=== PATIENT | female | born 1995 | race Caucasian/White ===

== ENCOUNTER 2022-06-01 02:58 | Emergency (ER) | payer OTHER, MEDICAID, SELFPAY ==
[2022-06-01 03:07] VITALS: BP 135/89; PULSE 71; RESP 18; TEMP 36.6; O2SAT 99; BMI 25.0
[2022-06-01 03:10] VITALS: BP 131/87; PULSE 97; RESP 16; O2SAT 97
--- NOTE | 2022-06-01 03:40 | XRR_ITS ---
PROCEDURE INFORMATION: Exam: XR Chest Exam date and time: 06/01/2022 4:12 AM Age: 27 years old Clinical indication: Shortness of breath; Additional info: Allergic reaction, SOB TECHNIQUE: Imaging protocol: Radiologic exam of the chest. Views: 1 view. COMPARISON: No relevant prior studies available. FINDINGS: Lungs: The lung parenchyma is clear. Pleural spaces: No pneumothorax. No pleural effusion. Heart/Mediastinum: The cardiomediastinal silhouette is within normal limits. Bones/joints: Unremarkable. XR/XR chest 1V portable [id number] IMPRESSION: No acute cardiopulmonary abnormality.
--- NOTE | 2022-06-01 03:57 | ED_ITS ---
HPI - Allergic Reaction General: Chief complaint: Allergic Reaction Stated complaint: SOB Headaches Time Seen by Provider: 06/01/22 03:22 History of Present Illness: HPI narrative: 27-year-old female, healthy, presents after an exposure at her work to what she believes is a chemical that she may be allergic to. This happened yesterday afternoon. 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 She has had reactions to this before, but not this severe or prolonged. She has multiple symptoms including headache, shortness of breath, a feeling of tightness in her throat, and tingling in her tongue she has had nausea as well. She has not taken anything for the symptoms. She notes that in the past, when taking Benadryl, it makes her feel like I am going to . She is quite anxious on exam, and tearful when the blood pressure cuff takes her blood pressure. She lists multiple medication allergies and intolerances. MD complaint: allergic reaction and other Onset (ago): hour(s) Exposure: cleaning product exposure Associated symptoms: Reports difficulty breathing, dysphagia, nausea and tongue swelling (possibly); Deny abdominal pain, facial swelling, hoarseness, itching, lip swelling, rash or vomiting Treatment prior to arrival: none Previous Allergic Reaction History: other Review of Systems Const: Denies: fever(s) Eyes: Reports: change in vision and blurry vision; Denies: eye discomfort ENMT: Reports: throat pain; Denies: hoarseness, swelling of lips/tongue or oral sores Card: Denies: chest pain Resp: Reports: dyspnea GI: Reports: nausea and dysphagia; Denies: abdominal pain or vomiting Skin/Breast: Denies: rash Neuro: Reports: headache(s) Psych: Reports: anxiety All/Imm: Reports: tongue swelling (possibly); Denies: facial swelling Physical Exam Const: GENERAL APPEARANCE: cooperative, well kempt and anxious; not ill appearing and not frail appearing ORIENTATION/CONSCIOUSNESS: Yes awake HENMT: COMMON NORMALS: normocephalic, atraumatic and Normal external nose present HEAD & SCALP: normocephalic and atraumatic; no Acrocyanosis present FACE & SINUS: normal facial exam and face symmetric; no Acrocyanosis present NOSE: Normal external nose present and Normal nares present MOUTH: Normal oral and palatal mucosa present, lip normal and tongue normal THROAT: posterior oropharynx normal Eye: COMMON NORMALS: Equal, round and reactive pupils present and EOMs intact bilaterally PUPIL: Yes Equal, round and reactive pupils present Neck/C-Spine: GENERAL: Yes trachea midline Chest: CHEST: Yes Symmetrical chest wall rise Resp: COMMON NORMALS: normal respiratory effort, No use of accessory muscles and clear to auscultation bilaterally AUSCULTATION: clear to auscultation bilaterally Cardio: COMMON NORMALS: regular rate and regular rhythm RATE: regular rate RHYTHM: regular rhythm GI: COMMON NORMALS: Normal to inspection, nondistended, normoactive bowel sounds present Extremity: COMMON NORMALS: no pedal edema Neuro: JAIME COMA SCALE: document GCS findings Jaime coma scale eye opening: Spontaneous Ferguson coma scale verbal response: Orientated Jaime coma scale motor response: Obey commands Ferguson coma scale total score: 15 Psych: APPEARANCE: Yes well kempt Skin: COMMON NORMALS: no rashes or lesions noted GENERAL SKIN EXAM: no rashes or lesions noted Course Vital Signs: Vital signs: Vital Signs Temperature 97.8 F 06/01/22 03:07 Pulse Rate 90 06/01/22 05:19 Respiratory Rate 16 06/01/22 05:19 Blood Pressure 101/59 06/01/22 05:19 Pulse Oximetry 95 06/01/22 05:19 MDM - Allergic Reaction Medical Decision Making This patient has no signs of respiratory distress whatsoever. Her tongue is of normal size. No lip swelling. She talks with pressured speech without becoming short of breath. Lab Data Radiology Impressions Chest X-Ray 06/01/22 03:40 IMPRESSION: No acute cardiopulmonary abnormality. Discharge Plan Discharge Patient Disposition: Home Clinical Impression: Allergic reaction Condition: Stable Prescriptions: New Zyrtec 10 mg capsule 10 mg PO DAILY Qty: 7 0RF Medrol (Travis) 4 mg tablets,dose pack See Rx Instructions PO .COMPLEX Qty: 21 0RF Rx Instructions: orally per package directions Discharge Orders: Discharge ED (Routine); Ordered 06/01/22 Ordered By: Amado Garcia Patient Instructions: Allergic Reaction Activity Restrictions/Additional Instructions: Medication as directed. Return for worsening symptoms such as shortness of breath, tongue swelling, trouble swallowing, any other concerns. See your doctor in follow-up Coding Level of Care Code ED Box Hinge And Lock Attacher for Chg Fwd Exam Comprehensive
[2022-06-01] MEDS: predniSONE 20 mg Tablet 40 MG PO (04:07)
[2022-06-01] MEDS: hyDROXYzine 25 mg Capsule PO (04:27)
[2022-06-01 05:10] VITALS: BP 101/59; PULSE 90; RESP 16; O2SAT 95
[2022-06-01 05:19] VITALS: BP 101/59; PULSE 90; RESP 16; O2SAT 95
== END 2022-06-01 05:24 | disposition home or self-care (01) ==
PROVIDERS: Emergency Provider Emergency Medicine
DX: T78.40XA Allergy, unspecified, initial encounter (principal)
CPT/HCPCS: 71045; 99283; J7512

== ENCOUNTER 2022-08-30 21:32 | Emergency (ER) | payer MEDICAID, SELFPAY ==
[2022-08-30 21:38] VITALS: BP 132/86; PULSE 77; RESP 16; TEMP 36.6; O2SAT 97
[2022-08-30] MEDS: CLONazepam 0.5 mg Tablet 0.25 MG PO (23:03)
--- NOTE | 2022-08-30 23:17 | W.ED.GENADLT ---
HPI - General Adult General: Chief complaint: General Medical Stated complaint: Facial Spasims Time Seen by Provider: 08/30/22 22:19 History of Present Illness: Patient is in today for muscle spasming. She reports that she had an EMDR treatment yesterday through her counselor. She reports that she feels like she may be stuck in a memory. She states that tonight she has been having rapid eye movement and muscle tightening from her face to her toes. She has had these similar movements in the past, after EMDR, but this has lasted longer Associated symptoms: Deny chest pain, dyspnea, nausea, palpitations or vomiting Review of Systems Const: Denies: fever(s), chills or body aches Card: Denies: chest pain or palpitations Resp: Denies: dyspnea GI: Denies: abdominal pain, nausea or vomiting : Denies: flank pain, difficulty voiding or dysuria Musc: Reports: other (Muscle spasms and twitching) Physical Exam Const: COMMON NORMALS: no acute distress, patient oriented x3 and alert Neck/C-Spine: COMMON NORMALS: no JVD Resp: COMMON NORMALS: normal respiratory effort, No use of accessory muscles and clear to auscultation bilaterally AUSCULTATION: clear to auscultation bilaterally Cardio: COMMON NORMALS: no JVD, regular rate, regular rhythm, S1 normal heart sound present, S2 normal heart sound present and No murmurs present (Cardio) RATE: regular rate RHYTHM: regular rhythm HEART SOUNDS: S1 normal heart sound present and S2 normal heart sound present Neuro: COMMON NORMALS: patient oriented x3 SENSORIUM/ORIENTATION: Yes alert OTHER: The patient is well-appearing. She makes occasional odd faces and states that she has spasming in her back. When she closes her eyes her eyes flutter. None of these movements seem to be rhythmic or a tic. Cranial nerves II through XII are grossly intact. Patient appears to be in no acute distress. She is on the phone and has a friend at bedside with her Course Vital Signs: Vital signs: Vital Signs Temperature 97.8 F 08/30/22 21:38 Pulse Rate 77 08/30/22 21:38 Respiratory Rate 16 08/30/22 21:38 Blood Pressure 132/86 08/30/22 21:38 Pulse Oximetry 97 08/30/22 21:38 Oxygen Delivery Me thod 08/30/22 21:38 MDM - General Adult Medical Decision Making A histrionic 27-year-old female presents today stating that she is having a reaction from her EMDR treatment she had yesterday in counseling. She reports that she frequently has muscle twitching and spasming after such treatment. She feels like she is stuck in a memory. She also brings in genetic testing she has had done to tell which medication she can and cannot take. Labs are ordered to rule out any sort of electrolyte imbalance issue that could be leading to muscle spasm and contraction. Small dose of p.o. Klonopin given to help patient to relax. The muscle movements and spasming do not appear to be rhythmic. They do not appear to be seizure related. Reevaluation after Klonopin shows that patient reports improvement of muscle spasming contraction. She reports that she is ready to go home and try and go to bed. Labs are unremarkable. Patient is discharged home with her friend to drive. Advised her to follow-up next week with therapist and primary care provider. Return to ER as needed for new or worsening symptoms. Patient voiced understanding and agreement with plan of care. All questions answered to satisfaction Lab Data : 08/30/22 23:10 08/30/22 23:10 Laboratory Results WBC 8.7 10^3/uL (4.0-10.0) 08/30/22 23:10 RBC 4.44 10^6/uL (4.1-5.3) 08/30/22 23:10 Hgb 13.4 g/dL (11.5-15.3) 08/30/22 23:10 Hct 39.3 % (37.0-47.0) 08/30/22 23:10 MCV 88.5 fl (81-99) 08/30/22 23:10 MCH 30.2 pg (28.0-34.0) 08/30/22 23:10 MCHC 34.1 g/dL (30.0-36.0) 08/30/22 23:10 RDW 11.9 % (12.1-15.1) L 08/30/22 23:10 Plt Count 246 10^3/cmm (130-400) 08/30/22 23:10 MPV 10.0 fL (7.4-10.4) 08/30/22 23:10 Neut % (Auto) 64.5 % 08/30/22 23:10 Lymph % (Auto) 26.0 % 08/30/22 23:10 [place] % (Auto) 7.6 % 08/30/22 23:10 Eos % (Auto) 1.2 % 08/30/22 23:10 Baso % (Auto) 0.5 % 08/30/22 23:10 Neut # (Auto) 5.61 10^3/uL (1.8-7.7) 08/30/22 23:10 Lymph # (Auto) 2.3 10^3/uL (0.8-4.8) 08/30/22 23:10 [place] # (Auto) 0.7 10^3/uL (0.2-0.9) 08/30/22 23:10 Eos # (Auto) 0.1 10^3/uL (0.0-0.8) 08/30/22 23:10 Baso # (Auto) 0.0 10^3/uL (0.0-0.1) 08/30/22 23:10 Nucleated RBC % (auto) 0 % 08/30/22 23:10 Nucleated RBCs # 0.0 /100WBC 08/30/22 23:10 Sodium 139 mmol/L (136-145) 08/30/22 23:10 Potassium 3.9 mmol/L (3.5-5.1) 08/30/22 23:10 Chloride 104 mmol/L (98-107) 08/30/22 23:10 Carbon Dioxide 23 mmol/L (22-29) 08/30/22 23:10 Anion Gap 15.9 (5-19) 08/30/22 23:10 BUN 10 mg/dL (6-20) 08/30/22 23:10 Creatinine 0.8 mg/dL (0.5-0.9) 08/30/22 23:10 GFR Calculation 85.4 mL/min (90-130) L 08/30/22 23:10 Glucose 95 mg/dL (65-115) 08/30/22 23:10 Calculated Osmolality 287 mOsm/kg (285-295) 08/30/22 23:10 Calcium 9.5 mg/dL (8.5-10.5) 08/30/22 23:10 Total Bilirubin 0.7 mg/dL (0.15-1.2) 08/30/22 23:10 AST 12 U/L (0-32) 08/30/22 23:10 ALT 10 U/L (0-33) 08/30/22 23:10 Alkaline Phosphatase 54 U/L (35-105) 08/30/22 23:10 Total Protein 7.5 g/dL (6.6-8.7) 08/30/22 23:10 Albumin 4.7 g/dL (3.5-5.2) 08/30/22 23:10 Globulin 2.8 g/dL (1.3-4.6) 08/30/22 23:10 Urine HCG, Qual Negative (Negative) 08/30/22 23:40 Discharge Plan Discharge Patient Disposition: Home Clinical Impression: Anxiety Condition: Stable Prescriptions: No Action Zyrtec 10 mg capsule 10 mg PO DAILY Qty: 7 0RF Medrol (Travis) 4 mg tablets,dose pack See Rx Instructions PO .COMPLEX Qty: 21 0RF Rx Instructions: orally per package directions Discharge Orders: Discharge ED (Routine); Ordered 08/31/22 Ordered By: Addis Murphy Referrals: Niki Dash M.D [Primary Care Provider] - Discharge Diet: Usual diet Discharge Activity: Resume usual activity Activity Restrictions/Additional Instructions: You received clonazepam tonight. No driving tonight. Rest, sure that you are staying hydrated. Follow-up with therapist and primary care provider next week for reevaluation. Return to the ER as needed for new or worsening symptoms Coding Level of Care Code ED Speech And Hearing Director for Angela Fwcasandra Exam Expanded Problem Focused
[2022-08-30 23:20] LABS: Basophils % 0.5 %; Eosinophils # 0.1 10^3/uL (0.0-0.8); Eosinophils % 1.2 %; Hematocrit 39.3 % (37.0-47.0); Hemoglobin 13.4 g/dL (11.5-15.3); Lymphocytes # 2.3 10^3/uL (0.8-4.8); Mean Corpuscular HGB Conc 34.1 g/dL (30.0-36.0); Mean Corpuscular Hemoglobin 30.2 pg (28.0-34.0); Mean Corpuscular Volume 88.5 fl (81-99); Monocytes # 0.7 10^3/uL (0.2-0.9); Monocytes % 7.6 %; Neutrophils # 5.61 10^3/uL (1.8-7.7); Neutrophils % 64.5 %; Nucleated Red Blood Cells % 0 %; Platelet Count 246 10^3/cmm (130-400); Red Blood Count 4.44 10^6/uL (4.1-5.3); Red Cell Distribution Width 11.9 % (12.1-15.1); White Blood Count 8.7 10^3/uL (4.0-10.0)
[2022-08-30 23:37] LABS: Alanine Aminotransferase 10 U/L (0-33); Albumin Level 4.7 g/dL (3.5-5.2); Alkaline Phosphatase 54 U/L (35-105); Anion Gap 15.9 (5-19); Aspartate Amino Transferase 12 U/L (0-32); Blood Urea Nitrogen 10 mg/dL (6-20); Calcium 9.5 mg/dL (8.5-10.5); Carbon Dioxide 23 mmol/L (22-29); Chloride 104 mmol/L (98-107); Globulin 2.8 g/dL (1.3-4.6); Glomerular Filtration Rate 85.4 mL/min (90-130); Glucose 95 mg/dL (65-115); Osmolality Calculated 287 mOsm/kg (285-295); Potassium 3.9 mmol/L (3.5-5.1); Sodium 139 mmol/L (136-145); Total Bilirubin 0.7 mg/dL (0.15-1.2); Total Protein 7.5 g/dL (6.6-8.7)
== END 2022-08-31 00:18 | disposition home or self-care (01) ==
PROVIDERS: Emergency Provider Nurse Practitioner Family; PCP Physician Assistant Medical
DX: F41.9 Anxiety disorder, unspecified (principal)
CPT/HCPCS: 36415; 80053; 81025; 85025; 99283

== ENCOUNTER 2023-07-25 14:18 | Emergency (ER) | payer OTHER, MEDICAID, SELFPAY ==
[2023-07-25] VITALS (7 sets, daily range): BP systolic 103–123; BP diastolic 65–84; PULSE 61–74; RESP 16; TEMP 36.5; O2SAT 97–100; BMI 25.0
--- NOTE | 2023-07-25 14:32 | XRR_ITS ---
PROCEDURE INFORMATION: Exam: XR Chest Exam date and time: 07/25/2023 4:24 PM Age: 28 years old Clinical indication: Pain; Angina pectoris; Additional info: Chest pain TECHNIQUE: Imaging protocol: Radiologic exam of the chest. Views: 1 view. COMPARISON: CR XR chest 1V portable [id number] 06/01/2022 4:12 AM FINDINGS: Lungs: Unremarkable. No consolidation. Pleural spaces: Unremarkable. No pleural effusion. No pneumothorax. Heart/Mediastinum: Unremarkable. No cardiomegaly. Bones/joints: Unremarkable. XR/XR chest 1V portable [id number] IMPRESSION: No acute findings.
--- NOTE | 2023-07-25 14:33 | ECG_ITS ---
[facility] Test Date: 2023-07-25 Pat Name: Evelia Mc Department: Room: Gender: Female Harness Rigger: : 1995 Requested By: Celia Linares Order Number: [id number] Lynn MD: Pasha Pedroza M.D. Measurements Intervals [place] Rate: 74 P: -83 WV: 123 QRS: -9 QRSD: 89 T: 267 QT: 372 QTc: 413 Interpretive Statements JUNCTIONAL/ectopic atrial RHYTHM LOW QRS VOLTAGE IN PRECORDIAL LEADS [QRS DEFLECTION < 1.0 mV IN CHEST LEADS] INFERIOR MYOCARDIAL INFARCTION , OF INDETERMINATE AGE [40+ ms Q WAVE AND/OR ST/T ABNORMALITY IN II/aVF] No previous ECG available for comparison Electronically Signed On 07-25-2023 18:17:51 CDT by Pasha Pedroza M.D. [id number]
--- NOTE | 2023-07-25 16:23 | W.ED.CHESTPA ---
HPI - Chest Pain General: Chief Complaint: Chest Pain Stated Complaint: chest pain, pain in arm Time Seen by Provider: 07/25/23 16:19 History of Present Illness: Mikey to the ER with left chest pain that is stabbing in nature and is worse when she takes a big deep breath. 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 Patient was really hot at work tried to drink some water to cool down and during this time. She started just not feeling good all over and started having this left chest pain. She is said the chest pain did radiate down into her left arm. Her pain is totally resolved at the moment. Patient said she had this pain a month ago and was worked up through an ER at [place] and sent with home with a monitor that she had turned in but she has not heard the results of it yet. Review of Systems General: Reports: 10 or more systems reviewed and unremarkable except in HPI and below Physical Exam Const: COMMON NORMALS: no acute distress, average body habitus, patient oriented x3, no limitations, healthy appearing, alert and well nourished HENMT: COMMON NORMALS: normocephalic, atraumatic, hearing grossly normal bilaterally, external ears normal, Normal external nose present and moist oral mucous membranes HEAD & SCALP: normocephalic and atraumatic NOSE: Normal external nose present EXTERNAL EAR: Yes external ears normal Eye: COMMON NORMALS: Equal, round and reactive pupils present, EOMs intact bilaterally, conjunctivae normal and no scleral icterus CONJUNCTIVA: Yes conjunctivae normal PUPIL: Yes Equal, round and reactive pupils present Neck/C-Spine: COMMON NORMALS: full ROM, no lymphadenopathy, supple, no meningeal signs, no JVD and Thyroid normal THYROID: Thyroid normal Lymph: LYMPHATIC: no lymphadenopathy noted and no lymphedema noted Chest: COMMONS NORMALS: normal inspection of the chest and normal palpation of entire chest wall Resp: COMMON NORMALS: normal respiratory effort, No retractions, No use of accessory muscles and clear to auscultation bilaterally AUSCULTATION: clear to auscultation bilaterally Cardio: COMMON NORMALS: no JVD, regular rate, regular rhythm, S1 normal heart sound present, S2 normal heart sound present, No gallops present (Cardio), No clicks present (Cardio), No murmurs present (Cardio) and No rub (Cardio) RATE: regular rate RHYTHM: regular rhythm HEART SOUNDS: S1 normal heart sound present and S2 normal heart sound present GI: COMMON NORMALS: Normal to inspection, nondistended, normoactive bowel sounds present, Soft to palpation, non-tender, No hepatosplenomegaly present and no masses PALPATION: Yes Soft to palpation and Yes No hepatosplenomegaly present Neuro: COMMON NORMALS: patient oriented x3 SENSORIUM/ORIENTATION: Yes alert MENINGEAL SIGNS: Yes no meningeal signs Course Vital Signs: Vital signs: Vital Signs Temperature 97.7 F 07/25/23 14:23 Pulse Rate 65 07/25/23 17:00 Respiratory Rate 16 07/25/23 14:23 Blood Pressure 108/69 07/25/23 17:00 Pulse Oximetry 100 07/25/23 17:00 Oxygen Delivery Me thod Room Air 07/25/23 17:00 MDM - Chest Pain Medical Decision Making Presents to the ER with left-sided stabbing chest pain. Patient was worked up in the standard cardiac fashion. This includes physical exam lab work that includes chest x-ray serial enzymes and serial EKGs. All of which was negative. It is thought that the patient's pain is not cardiac in nature. Patient be discharged home to follow-up with her PCP Differential Diagnosis Unlikely acute massive pulmonary embolism, acute respiratory failure, acute myocardial infarction, cardiac arrest or sudden cardiac Medical Records I reviewed the patient's medical records. Lab Data I reviewed the patient's lab results. 07/25/23 16:23 07/25/23 16:23 Radiology Impressions Chest X-Ray 07/25/23 14:32 IMPRESSION: No acute findings. Laboratory Results WBC 8.42 10^3/uL (3.29-11.43) 07/25/23 16: RBC 4.93 10^6/uL (3.85-5.65) 07/25/23 16: Hgb 14.60 g/dL (11.27-16.99) 07/25/23 16: Hct 43.2 % (36-47) 07/25/23 16:23 MCV 87.6 fl (85-98) 07/25/23 16: MCH 29.6 pg (27-33) 07/25/23 16: MCHC 33.8 g/dL (30-55) 07/25/23 16: RDW 11.8 % (12.1-15.1) L 07/25/23 16:23 Plt Count 301 10^3/cmm (157-399) 07/25/23 16:23 MPV 10.2 fL (7.4-10.4) 07/25/23 16:23 Neut % (Auto) 65.2 % 07/25/23 16:23 Lymph % (Auto) 27.2 % 07/25/23 16:23 Hughes % (Auto) 5.2 % 07/25/23 16:23 Eos % (Auto) 1.5 % 07/25/23 16:23 Baso % (Auto) 0.5 % 07/25/23 16: Neut # (Auto) 5.49 10^3/uL (1.8-7.7) 07/25/23 16: Lymph # (Auto) 2.3 10^3/uL (0.8-4.8) 07/25/23 16:23 Hughes # (Auto) 0.4 10^3/uL (0.2-0.9) 07/25/23 16:23 Eos # (Auto) 0.1 10^3/uL (0.0-0.8) 07/25/23 16: Baso # (Auto) 0.0 10^3/uL (0.0-0.1) 07/25/23 16: Nucleated RBC % (auto) 0 % 07/25/23 16: Nucleated RBCs # 0.0 /100WBC 07/25/23 16:23 Sodium 141 mmol/L (136-145) 07/25/23 16:23 Potassium 4.2 mmol/L (3.5-5.1) 07/25/23 16:23 Chloride 104 mmol/L (98-107) 07/25/23 16:23 Carbon Dioxide 23 mmol/L (22-29) 07/25/23 16:23 Anion Gap 18.2 (5-19) 07/25/23 16:23 BUN 10 mg/dL (6-20) 07/25/23 16:23 Creatinine 0.7 mg/dL (0.5-0.9) 07/25/23 16:23 GFR Calculation 98.9 mL/min (90-130) 07/25/23 16:23 Glucose 83 mg/dL (65-115) 07/25/23 16:23 Calculated Osmolality 290 mOsm/kg (285-295) 07/25/23 16:23 Calcium 10.1 mg/dL (8.5-10.5) 07/25/23 16:23 Total Bilirubin 0.6 mg/dL (0.15-1.2) 07/25/23 16:23 AST 16 U/L (0-32) 07/25/23 16:23 ALT 10 U/L (0-33) 07/25/23 16:23 Alkaline Phosphatase 74 U/L (35-105) 07/25/23 16:23 Troponin T Baseline 6 ng/L (0-10) 07/25/23 16:23 Troponin T 120 Minute 6.00 ng/L (0-10) 07/25/23 18:11 Delta Troponin T 0 ABS# (0-10) 07/25/23 18:11 Total Protein 8.6 g/dL (6.6-8.7) 07/25/23 16:23 Albumin 5.9 g/dL (3.5-5.2) H 07/25/23 16:23 Globulin 2.7 g/dL (1.3-4.6) 07/25/23 16:23 EKG Data EKG 1: I personally reviewed and interpreted this EKG as follows: EKG interpretation date: 07/25/23 EKG interpretation time: 14:33 Prior EKG tracings: not available for review Interpretation: EKG showed ventricular rate of 74 bpm, NC 123, QRS of 89, QTc of 413, normal rhythm with a possible Q waves or ST abnormality in 2 and aVF EKG 2: I personally reviewed and interpreted this EKG as follows: EKG interpretation date: 07/25/23 EKG interpretation time: 16:36 Prior EKG tracings: available for review Interpretation: EKG showed ventricular rate 63 bpm, NC interval 134, QRS duration 88, QTc of 420, sinus rhythm, possible right ventricular conduction delay, left posterior fascicular block Discharge Plan Discharge Patient Disposition: Home Clinical Impression: Chest pain, non-cardiac Condition: Stable Prescriptions: No Action lamotrigine 25 mg tablet 12.5 mg PO DAILY Discharge Orders: Discharge ED (Routine); Ordered 07/25/23 Ordered By: Armando Tran Referrals: Niki Dash M.D [Primary Care Provider] - 1 week Patient Instructions: Chest Pain - Noncardiac Activity Restrictions/Additional Instructions: Please follow-up with your primary care physician in the next 7 days or sooner as needed. Please return to the ER for worsening pain or returning of your symptoms for further evaluation and treatment. Coding Level of Care Code ED Cps Team Lead for Angela Aranda
[2023-07-25 16:30] LABS: Basophils % 0.5 %; Eosinophils # 0.1 10^3/uL (0.0-0.8); Eosinophils % 1.5 %; Hematocrit 43.2 % (36-47); Lymphocytes # 2.3 10^3/uL (0.8-4.8); Lymphocytes % 27.2 %; Mean Corpuscular HGB Conc 33.8 g/dL (30-55); Mean Corpuscular Hemoglobin 29.6 pg (27-33); Mean Corpuscular Volume 87.6 fl (85-98); Mean Platelet Volume 10.2 fL (7.4-10.4); Monocytes # 0.4 10^3/uL (0.2-0.9); Monocytes % 5.2 %; Neutrophils # 5.49 10^3/uL (1.8-7.7); Neutrophils % 65.2 %; Nucleated Red Blood Cells % 0 %; Platelet Count 301 10^3/cmm (157-399); Red Blood Count 4.93 10^6/uL (3.85-5.65); Red Cell Distribution Width 11.8 % (12.1-15.1); White Blood Count 8.42 10^3/uL (3.29-11.43)
--- NOTE | 2023-07-25 16:32 | ECG_ITS ---
[facility] Test Date: 2023-07-25 Pat Name: Evelia Mc Department: Room: Gender: Female Corporate Quality Assurance Manager: : 1995 Requested By: Armando Tran Order Number: [id number] Leah MD: Pasha Pedroza M.D. Measurements Intervals [place] Rate: 63 P: 52 OR: 134 QRS: 115 QRSD: 88 T: 55 QT: 412 QTc: 424 Interpretive Statements SINUS RHYTHM LOW QRS VOLTAGE IN PRECORDIAL LEADS [QRS DEFLECTION < 1.0 mV IN CHEST LEADS] POSSIBLE RIGHT VENTRICULAR CONDUCTION DELAY [RSR (QR) IN V1/V2] LEFT POSTERIOR FASCICULAR BLOCK [QRS AXIS > 109, INFERIOR Q] Compared to ECG 07/25/2023 14:33:48 Left posterior fascicular block now present Junctional rhythm no longer present Myocardial infarct finding no longer present Electronically Signed On 07-25-2023 18:21:27 CDT by Pasha Pedroza M.D. [id number]
[2023-07-25 16:50] LABS: Troponin(5th) Baseline 6 ng/L (0-10)
[2023-07-25 16:52] LABS: Alanine Aminotransferase 10 U/L (0-33); Albumin Level 5.9 g/dL (3.5-5.2); Alkaline Phosphatase 74 U/L (35-105); Anion Gap 18.2 (5-19); Aspartate Amino Transferase 16 U/L (0-32); Blood Urea Nitrogen 10 mg/dL (6-20); Calcium 10.1 mg/dL (8.5-10.5); Carbon Dioxide 23 mmol/L (22-29); Chloride 104 mmol/L (98-107); Globulin 2.7 g/dL (1.3-4.6); Glomerular Filtration Rate 98.9 mL/min (90-130); Glucose 83 mg/dL (65-115); Osmolality Calculated 290 mOsm/kg (285-295); Potassium 4.2 mmol/L (3.5-5.1); Sodium 141 mmol/L (136-145); Total Bilirubin 0.6 mg/dL (0.15-1.2); Total Protein 8.6 g/dL (6.6-8.7)
--- NOTE | 2023-07-25 16:55 | PC.NURSE ---
PATIENT HOOKED UP TO CONTINUOUS BEDSIDE CARDIAC MONITORING.
[2023-07-25 18:46] LABS: Troponin 5 2HR Delta 0 ABS# (0-10)
== END 2023-07-25 19:15 | disposition home or self-care (01) ==
PROVIDERS: Emergency Provider Emergency Medicine; PCP Physician Assistant Medical
DX: R07.89 Other chest pain (principal)
CPT/HCPCS: 71045; 80053; 84484; 85025; 93005; 99285

== ENCOUNTER 2024-04-16 11:46 | Outpatient (CLI) | payer OTHER, SELFPAY ==
[2024-04-16 12:45] LABS: Basophils % 0.4 %; Eosinophils # 0.1 10^3/uL (0.0-0.8); Eosinophils % 2.1 %; Hematocrit 37.4 % (36-47); Lymphocytes # 1.6 10^3/uL (0.8-4.8); Mean Corpuscular HGB Conc 33.7 g/dL (30-55); Mean Corpuscular Hemoglobin 29.9 pg (27-33); Mean Corpuscular Volume 88.8 fl (85-98); Mean Platelet Volume 10.2 fL (7.4-10.4); Monocytes # 0.4 10^3/uL (0.2-0.9); Monocytes % 6.1 %; Neutrophils % 67.1 %; Nucleated Red Blood Cells % 0 %; Platelet Count 271 10^3/cmm (157-399); Red Blood Count 4.21 10^6/uL (3.85-5.65); White Blood Count 6.71 10^3/uL (3.29-11.43)
[2024-04-16 12:49] LABS: HCG Qualitative Urine. Negative (Negative)
[2024-04-16 13:23] LABS: Alanine Aminotransferase 9 U/L (0-33); Albumin Level 4.4 g/dL (3.5-5.2); Alkaline Phosphatase 51 U/L (35-105); Aspartate Amino Transferase 14 U/L (0-32); Chol HDL Ratio 4.12 mg/dL (0.0-4.40); Cholesterol 169 mg/dL (0-200); Globulin 2.9 g/dL (1.3-4.6); HDL Cholesterol 41 mg/dL (60-100); LDL Cholesterol Calculated 117 mg/dL (50-129); Total Bilirubin 0.6 mg/dL (0.15-1.2); Total Protein 7.3 g/dL (6.6-8.7); Triglycerides 55 mg/dL (0-150); VLDL Cholestrol Calculation 11 mg/dL (0-30)
== END 2024-04-16 11:47 | disposition home or self-care (01) ==
LOC: LAB 11:50
PROVIDERS: PCP Family Medicine; Visit Provider Nurse Practitioner Family
DX: D22.5 Melanocytic nevi of trunk (principal); L70.0 Acne vulgaris; D18.01 Hemangioma of skin and subcutaneous tissue; L81.4 Other melanin hyperpigmentation; L57.8 Other skin changes due to chronic exposure to nonionizing radiation; L23.7 Allergic contact dermatitis due to plants, except food; D22.72 Melanocytic nevi of left lower limb, including hip
CPT/HCPCS: 80061; 80076; 81025; 84702; 85025

== ENCOUNTER 2024-06-25 11:55 | Outpatient (CLI) | payer OTHER, SELFPAY ==
[2024-06-25 12:25] LABS: HCG Qualitative Urine. Negative (Negative)
== END 2024-06-25 11:56 | disposition home or self-care (01) ==
PROVIDERS: PCP Family Medicine
DX: L70.0 Acne vulgaris (principal)
CPT/HCPCS: 81025

== ENCOUNTER 2024-08-26 08:57 | Outpatient (CLI) | payer OTHER, SELFPAY ==
[2024-08-26 09:18] LABS: HCG Qualitative Urine. Negative (Negative)
== END 2024-08-26 08:58 | disposition home or self-care (01) ==
LOC: LAB 08:58
PROVIDERS: PCP Family Medicine; Visit Provider Nurse Practitioner Family
DX: L70.0 Acne vulgaris (principal)
CPT/HCPCS: 81025

== ENCOUNTER 2024-10-22 12:54 | Outpatient (CLI) | payer OTHER, SELFPAY ==
[2024-10-22 13:13] LABS: HCG Qualitative Urine. Negative (Negative)
== END 2024-10-22 12:55 | disposition home or self-care (01) ==
PROVIDERS: PCP Family Medicine; Visit Provider Nurse Practitioner Family
DX: L70.0 Acne vulgaris (principal)
CPT/HCPCS: 81025

== ENCOUNTER 2024-11-26 09:41 | Outpatient (CLI) | payer OTHER, SELFPAY ==
[2024-11-26 10:10] LABS: Basophils % 0.5 %; Eosinophils # 0.1 10^3/uL (0.0-0.8); Eosinophils % 1.9 %; Hematocrit 40.8 % (36-47); Lymphocytes # 1.4 10^3/uL (0.8-4.8); Lymphocytes % 22.7 %; Mean Corpuscular HGB Conc 33.6 g/dL (30-55); Mean Corpuscular Hemoglobin 29.6 pg (27-33); Mean Corpuscular Volume 88.1 fl (85-98); Mean Platelet Volume 10.2 fL (7.4-10.4); Monocytes # 0.3 10^3/uL (0.2-0.9); Monocytes % 5.3 %; Neutrophils # 4.34 10^3/uL (1.8-7.7); Neutrophils % 69.4 %; Nucleated Red Blood Cells % 0 %; Platelet Count 252 10^3/cmm (157-399); Red Blood Count 4.63 10^6/uL (3.85-5.65); Red Cell Distribution Width 11.6 % (12.1-15.1); White Blood Count 6.25 10^3/uL (3.29-11.43)
[2024-11-26 10:39] LABS: Alanine Aminotransferase 8 U/L (0-33); Albumin Level 4.7 g/dL (3.5-5.2); Alkaline Phosphatase 55 U/L (35-105); Aspartate Amino Transferase 12 U/L (0-32); Chol HDL Ratio 4.51 mg/dL (0.0-4.40); Cholesterol 185 mg/dL (0-200); Globulin 2.7 g/dL (1.3-4.6); HDL Cholesterol 41 mg/dL (60-100); LDL Cholesterol Calculated 120 mg/dL (50-129); Total Bilirubin 0.5 mg/dL (0.15-1.2); Total Protein 7.4 g/dL (6.6-8.7); Triglycerides 118 mg/dL (0-150); VLDL Cholestrol Calculation 24 mg/dL (0-30)
== END 2024-11-26 09:42 | disposition home or self-care (01) ==
PROVIDERS: Nurse Practitioner Family; PCP Family Medicine; Visit Provider Family Medicine
DX: L70.0 Acne vulgaris (principal)
CPT/HCPCS: 80061; 80076; 84702; 85025

== ENCOUNTER 2024-12-29 09:52 | Outpatient (CLI) | payer OTHER, SELFPAY ==
[2024-12-29 10:39] LABS: HCG Qualitative Urine. Negative (Negative)
== END 2024-12-29 09:53 | disposition home or self-care (01) ==
PROVIDERS: PCP Family Medicine; Visit Provider Nurse Practitioner Family
DX: L70.0 Acne vulgaris (principal)
CPT/HCPCS: 81025

== ENCOUNTER 2025-01-28 10:44 | Outpatient (CLI) | payer OTHER, SELFPAY ==
[2025-01-28 11:47] LABS: Basophils % 0.4 %; Eosinophils # 0.1 10^3/uL (0.0-0.8); Eosinophils % 1.6 %; Hematocrit 38.2 % (36-47); Lymphocytes # 1.7 10^3/uL (0.8-4.8); Lymphocytes % 34.5 %; Mean Corpuscular HGB Conc 34.6 g/dL (30-55); Mean Corpuscular Hemoglobin 30.3 pg (27-33); Mean Corpuscular Volume 87.6 fl (85-98); Mean Platelet Volume 9.9 fL (7.4-10.4); Monocytes # 0.3 10^3/uL (0.2-0.9); Monocytes % 6.7 %; Neutrophils % 56.6 %; Nucleated Red Blood Cells % 0 %; Platelet Count 293 10^3/cmm (157-399); Red Blood Count 4.36 10^6/uL (3.85-5.65); Red Cell Distribution Width 11.6 % (12.1-15.1); White Blood Count 4.95 10^3/uL (3.29-11.43)
[2025-01-28 12:21] LABS: Alanine Aminotransferase 15 U/L (0-33); Albumin Level 4.6 g/dL (3.5-5.2); Alkaline Phosphatase 57 U/L (35-105); Aspartate Amino Transferase 17 U/L (0-32); Chol HDL Ratio 5.97 mg/dL (0.0-4.40); Cholesterol 227 mg/dL (0-200); Globulin 2.9 g/dL (1.3-4.6); HDL Cholesterol 38 mg/dL (60-100); LDL Cholesterol Calculated 171 mg/dL (50-129); Total Bilirubin 0.7 mg/dL (0.15-1.2); Total Protein 7.5 g/dL (6.6-8.7); Triglycerides 90 mg/dL (0-150)
[2025-01-28 12:37] LABS: HCG Qualitative Urine. Negative (Negative)
== END 2025-01-28 10:45 | disposition home or self-care (01) ==
PROVIDERS: PCP Family Medicine; Visit Provider Nurse Practitioner Family
DX: L70.0 Acne vulgaris (principal)
CPT/HCPCS: 36415; 80061; 80076; 81025; 85025

== ENCOUNTER 2025-02-25 11:34 | Outpatient (CLI) | payer OTHER, SELFPAY ==
[2025-02-25 12:08] LABS: Basophils % 0.5 %; Eosinophils # 0.1 10^3/uL (0.0-0.8); Eosinophils % 1.5 %; Hematocrit 38.3 % (36-47); Lymphocytes # 1.9 10^3/uL (0.8-4.8); Lymphocytes % 34.9 %; Mean Corpuscular HGB Conc 33.7 g/dL (30-55); Mean Corpuscular Hemoglobin 29.5 pg (27-33); Mean Corpuscular Volume 87.6 fl (85-98); Mean Platelet Volume 9.7 fL (7.4-10.4); Monocytes # 0.3 10^3/uL (0.2-0.9); Monocytes % 5.8 %; Neutrophils # 3.13 10^3/uL (1.8-7.7); Neutrophils % 57.1 %; Nucleated Red Blood Cells % 0 %; Platelet Count 309 10^3/cmm (157-399); Red Blood Count 4.37 10^6/uL (3.85-5.65); Red Cell Distribution Width 11.7 % (12.1-15.1); White Blood Count 5.48 10^3/uL (3.29-11.43)
[2025-02-25 12:24] LABS: HCG Quantitative < 1.00 mIU/mL
[2025-02-25 12:35] LABS: Alanine Aminotransferase 31 U/L (0-33); Albumin Level 4.6 g/dL (3.5-5.2); Alkaline Phosphatase 68 U/L (35-105); Aspartate Amino Transferase 25 U/L (0-32); Globulin 3.2 g/dL (1.3-4.6); Total Bilirubin 0.5 mg/dL (0.15-1.2); Total Protein 7.8 g/dL (6.6-8.7)
[2025-02-26 12:11] LABS: Chol HDL Ratio 6.91 mg/dL (0.0-4.40); Cholesterol 235 mg/dL (0-200); HDL Cholesterol 34 mg/dL (60-100); LDL Cholesterol Calculated 177 mg/dL (50-129); Triglycerides 119 mg/dL (0-150); VLDL Cholestrol Calculation 24 mg/dL (0-30)
== END 2025-02-25 11:35 | disposition home or self-care (01) ==
LOC: LAB 11:35
PROVIDERS: PCP Family Medicine; Visit Provider Nurse Practitioner Family
DX: L70.0 Acne vulgaris (principal)
CPT/HCPCS: 36415; 80061; 80076; 84702; 85025

== ENCOUNTER 2025-03-28 09:39 | Outpatient (CLI) | payer OTHER, SELFPAY ==
[2025-03-28 10:17] LABS: Basophils % 0.6 %; Eosinophils # 0.1 10^3/uL (0.0-0.8); Eosinophils % 2.1 %; Hematocrit 37.1 % (36-47); Lymphocytes # 1.6 10^3/uL (0.8-4.8); Lymphocytes % 31.2 %; Mean Corpuscular HGB Conc 33.7 g/dL (30-55); Mean Corpuscular Hemoglobin 30.1 pg (27-33); Mean Corpuscular Volume 89.4 fl (85-98); Monocytes # 0.3 10^3/uL (0.2-0.9); Monocytes % 6.5 %; Neutrophils % 59.4 %; Nucleated Red Blood Cells % 0 %; Platelet Count 253 10^3/cmm (157-399); Red Blood Count 4.15 10^6/uL (3.85-5.65); Red Cell Distribution Width 11.8 % (12.1-15.1); White Blood Count 5.22 10^3/uL (3.29-11.43)
[2025-03-28 10:38] LABS: HCG Quantitative < 1.00 mIU/mL
[2025-03-28 10:56] LABS: Alanine Aminotransferase 14 U/L (0-33); Albumin Level 4.7 g/dL (3.5-5.2); Alkaline Phosphatase 59 U/L (35-105); Aspartate Amino Transferase 16 U/L (0-32); Chol HDL Ratio 5.75 mg/dL (0.0-4.40); Cholesterol 207 mg/dL (0-200); Globulin 2.8 g/dL (1.3-4.6); HDL Cholesterol 36 mg/dL (60-100); LDL Cholesterol Calculated 142 mg/dL (50-129); LDL HDL Ratio 3.94 RATIO (0.00-3.22); Total Bilirubin 0.3 mg/dL (0.15-1.2); Total Protein 7.5 g/dL (6.6-8.7); Triglycerides 147 mg/dL (0-150)
== END 2025-03-28 09:40 | disposition home or self-care (01) ==
LOC: LAB 09:42
PROVIDERS: PCP Family Medicine; Visit Provider Nurse Practitioner Family
DX: L70.0 Acne vulgaris (principal)
CPT/HCPCS: 36415; 80061; 80076; 84702; 85025

== ENCOUNTER 2025-04-26 08:48 | Outpatient (CLI) | payer OTHER, SELFPAY ==
[2025-04-26 10:27] LABS: HCG Quantitative < 1.00 mIU/mL
== END 2025-04-26 08:49 | disposition home or self-care (01) ==
PROVIDERS: PCP Family Medicine; Visit Provider Nurse Practitioner Family
DX: L70.0 Acne vulgaris (principal)
CPT/HCPCS: 36415; 84702

== ENCOUNTER 2025-05-27 09:12 | Outpatient (CLI) | payer OTHER, SELFPAY ==
[2025-05-27 10:37] LABS: Basophils % 0.3 %; Eosinophils # 0.1 10^3/uL (0.0-0.8); Eosinophils % 2.2 %; Lymphocytes # 1.7 10^3/uL (0.8-4.8); Mean Corpuscular HGB Conc 32.8 g/dL (30-55); Mean Corpuscular Hemoglobin 29.2 pg (27-33); Mean Corpuscular Volume 89.3 fl (85-98); Mean Platelet Volume 10.4 fL (7.4-10.4); Monocytes # 0.5 10^3/uL (0.2-0.9); Monocytes % 7.9 %; Neutrophils # 3.63 10^3/uL (1.8-7.7); Neutrophils % 61.4 %; Nucleated Red Blood Cells % 0 %; Platelet Count 225 10^3/cmm (157-399); Red Blood Count 4.48 10^6/uL (3.85-5.65); White Blood Count 5.92 10^3/uL (3.29-11.43)
[2025-05-27 10:59] LABS: HCG Quantitative < 1.00 mIU/mL
[2025-05-27 11:18] LABS: Alanine Aminotransferase 9 U/L (0-33); Albumin Level 4.4 g/dL (3.5-5.2); Alkaline Phosphatase 64 U/L (35-105); Aspartate Amino Transferase 16 U/L (0-32); Bilirubin Direct 0.17 mg/dL (0.00-0.30); Chol HDL Ratio 6.35 mg/dL (0.0-4.40); Cholesterol 197 mg/dL (0-200); Globulin 3.2 g/dL (1.3-4.6); HDL Cholesterol 31 mg/dL (60-100); LDL Cholesterol Calculated 137 mg/dL (50-129); LDL HDL Ratio 4.42 RATIO (0.00-3.22); Total Bilirubin 0.7 mg/dL (0.15-1.2); Total Protein 7.6 g/dL (6.6-8.7); Triglycerides 145 mg/dL (0-150)
== END 2025-05-27 09:13 | disposition home or self-care (01) ==
LOC: LAB 09:16
PROVIDERS: PCP Family Medicine; Visit Provider Nurse Practitioner Family
DX: L70.0 Acne vulgaris (principal); L90.5 Scar conditions and fibrosis of skin; Z79.899 Other long term (current) drug therapy; L85.3 Xerosis cutis; R04.0 Epistaxis; E78.00 Pure hypercholesterolemia, unspecified; K13.0 Diseases of lips
CPT/HCPCS: 36415; 80061; 80076; 84702; 85025

== ENCOUNTER 2025-08-08 11:52 | Outpatient (CLI) | payer OTHER, SELFPAY ==
[2025-08-08 12:50] LABS: Hematocrit 39.8 % (36-47); Hemoglobin 13.60 g/dL (11.27-16.99); Mean Corpuscular HGB Conc 34.2 g/dL (30-55); Mean Corpuscular Hemoglobin 29.8 pg (27-33); Mean Corpuscular Volume 87.1 fl (85-98); Nucleated Red Blood Cells % 0 %; Platelet Count 246 10^3/cmm (157-399); Red Blood Count 4.57 10^6/uL (3.85-5.65); White Blood Count 7.24 10^3/uL (3.29-11.43)
[2025-08-08 13:04] LABS: HCG, Serum Qual Negative (Negative)
[2025-08-08 13:14] LABS: Cholesterol 202 mg/dL (0-200); HDL Cholesterol 38 mg/dL (60-100); Triglycerides 102 mg/dL (0-150)
[2025-08-08 13:29] LABS: Hepatitis A Antibody IgM Non-Reactive (Nonreactive); Hepatitis B Surface Antigen Non-Reactive (Nonreactive)
== END 2025-08-08 11:53 | disposition home or self-care (01) ==
LOC: LAB 11:53
PROVIDERS: PCP Family Medicine; Visit Provider Nurse Practitioner Family
DX: L70.0 Acne vulgaris (principal); L90.5 Scar conditions and fibrosis of skin; Z79.899 Other long term (current) drug therapy; L85.3 Xerosis cutis
CPT/HCPCS: 36415; 80061; 80074; 84703; 85025

== ENCOUNTER 2025-09-09 15:05 | Outpatient (CLI) | payer OTHER, SELFPAY ==
[2025-09-09 15:51] LABS: Hematocrit 37.0 % (36-47); Hemoglobin 12.80 g/dL (11.27-16.99); Mean Corpuscular HGB Conc 34.6 g/dL (30-55); Mean Corpuscular Hemoglobin 30.3 pg (27-33); Mean Corpuscular Volume 87.5 fl (85-98); Nucleated Red Blood Cells % 0 %; Platelet Count 252 10^3/cmm (157-399); Red Blood Count 4.23 10^6/uL (3.85-5.65); White Blood Count 10.57 10^3/uL (3.29-11.43)
[2025-09-09 16:38] LABS: Alanine Aminotransferase 8 U/L (0-33); Albumin Level 4.6 g/dL (3.5-5.2); Alkaline Phosphatase 63 U/L (35-105); Aspartate Amino Transferase 13 U/L (0-32); Cholesterol 183 mg/dL (0-200); Globulin 3.0 g/dL (1.3-4.6); HDL Cholesterol 38 mg/dL (60-100); Total Protein 7.6 g/dL (6.6-8.7); Triglycerides 93 mg/dL (0-150)
== END 2025-09-09 15:06 | disposition home or self-care (01) ==
LOC: LAB 15:07
PROVIDERS: PCP Family Medicine
DX: L70.0 Acne vulgaris (principal)
CPT/HCPCS: 36415; 80061; 80076; 84702; 85025